=== PATIENT | male | born 1965 | race Caucasian/White ===

== ENCOUNTER 2020-02-28 12:50 | Outpatient (REF) | payer OTHER, SELFPAY | END 2020-02-28 12:51 | disposition home or self-care (01) | LOC: HO.LAB 12:50 | PROVIDERS: Visit Provider Internal Medicine | DX: Z20.828 Contact with and (suspected) exposure to other viral communicable diseases (principal) | CPT/HCPCS: 36415; C9803; U0003 ==

== ENCOUNTER 2020-03-14 13:57 | Outpatient (REF) | payer OTHER, SELFPAY ==
[2020-03-14 14:49] LABS: Hematocrit 44.1 % (42-52); Hemoglobin 15.1 g/dl (14.0-18.0); Mean Corpuscular HGB Conc 34.2 g/dl (31.0-36.0); Mean Corpuscular Hemoglobin 29.7 pg (27.0-33.0); Mean Corpuscular Volume 86.8 fL (80-98); Mean Platelet Volume 10.9 fL (9.4-12.4); Platelet Count 247 X10*3/uL (160-400); Red Blood Count 5.08 X10*6/uL (4.60-5.80); Red Cell Distribution Width 11.9 % (11.0-16.0); White Blood Count 6.6 X10*3/uL (4.8-10.8)
[2020-03-14 15:11] LABS: Alanine Aminotransferase 28 U/L (0-40); Albumin Level 4.3 g/dL (3.5-5.0); Alkaline Phosphatase 71 U/L (39-117); Anion Gap 12 (12-20); Aspartate Amino Transferase 23 U/L (5-37); Bilirubin Direct 0.3 mg/dL (0.0-0.5); Bilirubin Total 0.8 mg/dL (0.0-1.0); Blood Urea Nitrogen 9 mg/dL (9-16); Calcium 9.6 mg/dL (8.4-10.2); Carbon Dioxide 30 mmol/L (22-29); Chloride 100 mmol/L (96-108); Cholesterol 261 mg/dL; Estimated Glomerular Filt Rate > 60; Glucose Random 128 mg/dL (60-115); HDL Cholesterol 44 mg/dL; LDL Cholesterol Calculated 185 mg/dl; Potassium 4.9 mmol/l (3.3-5.1); Sodium 137 mmol/L (135-145); Triglycerides 163 mg/dL
[2020-03-15 11:31] LABS: Estimated Average Glucose 157 mg/dL; Hemoglobin A1c % 7.1 %
== END 2020-03-14 13:58 | disposition home or self-care (01) ==
LOC: HO.LAB 13:57
PROVIDERS: Visit Provider Internal Medicine
DX: R73.9 Hyperglycemia, unspecified (principal); I10 Essential (primary) hypertension
CPT/HCPCS: 36415; 80048; 80061; 80076; 83036; 85027

== ENCOUNTER → 2020-03-29 07:59 | Outpatient (REF) | payer OTHER, SELFPAY ==
--- NOTE | 2020-03-29 08:02 | CA_ITS ---
Acquisition Time: 2020-03-29 08:07:23 Total Exercise Time: 00:08:00 Test Indications: Chest Pain Medications: BETA MALGORZATA Protocol: MOSES Max HR: 153 BPM 91% of Pred: 167 BPM Max BP: 148/084 mmHG Max Work Load: 10.0 METS Exercise stress test with exercise 8 min of Moses protocol, without anginal symptoms, without arrythmia, with normotensive response to exercise, without EKG changes meeting criteria for ischemia. Test reviewed with Dr Galarza. Referred By: Fritz Wallace Overread By: VICENTE ANDRADE
== END ==
LOC: HO.CARD 07:59
PROVIDERS: Visit Provider Internal Medicine
DX: I10 Essential (primary) hypertension (principal)
CPT/HCPCS: 93017

== ENCOUNTER 2020-04-24 14:29 | Outpatient (REF) | payer OTHER, SELFPAY | END 2020-04-24 14:30 | disposition home or self-care (01) | LOC: HO.LAB 14:29 | PROVIDERS: Visit Provider Internal Medicine | DX: Z20.822 Contact with and (suspected) exposure to COVID-19 (principal) | CPT/HCPCS: 36415; C9803; U0003; U0005 ==

== ENCOUNTER 2020-07-11 15:15 | Outpatient (REF) | payer OTHER, SELFPAY ==
[2020-07-11 16:14] LABS: Cholesterol 289 mg/dL; HDL Cholesterol 42 mg/dL; LDL Cholesterol Calculated 172 mg/dl; Triglycerides 379 mg/dL
[2020-07-12 07:45] LABS: Estimated Average Glucose 189 mg/dL; Hemoglobin A1c % 8.2 %
== END 2020-07-11 15:16 | disposition home or self-care (01) ==
LOC: HO.LAB 15:15
PROVIDERS: PCP Internal Medicine; Visit Provider Internal Medicine
DX: I10 Essential (primary) hypertension (principal); R73.9 Hyperglycemia, unspecified
CPT/HCPCS: 36415; 80061; 83036

== ENCOUNTER 2020-08-17 09:50 | Emergency (ER) | payer OTHER, SELFPAY ==
--- NOTE | 2020-08-17 | ECG_ITS ---
Test Reason : FALL Blood Pressure : / mmHG Vent. Rate : 079 BPM Atrial Rate : 079 BPM P-R Int : 160 ms QRS Dur : 092 ms QT Int : 354 ms P-R-T Axes : 024 013 036 degrees QTc Int : 405 ms Normal sinus rhythm Normal ECG When compared with ECG of 17-MAR-2018 00:16, No significant change was found Referred By: Generic ED Physician Electronically Signed By:Avel Raphael
--- NOTE | ~2020-08-17 | XR_ITS ---
EXAMINATION: XR RIBS, LEFT CLINICAL INFORMATION: Trauma, pain COMPARISON: None TECHNIQUE: Frontal view chest and 3 views left ribs are obtained for a total of 4 views. FINDINGS: There is no visible left rib fracture. No visible acute bony abnormality. There are mild degenerative changes thoracic spine with bridging osteophytes. The lungs are clear and there is no pneumothorax or pneumomediastinum. No airspace consolidation or pleural reaction or effusion. The costophrenic sulci are well-defined. The heart is normal in size. The hilar and mediastinal contours are unremarkable. XR/XR ribs LT min 3V w CXR1V IMPRESSION: Unremarkable examination.
[2020-08-17 09:52] VITALS: BP 156/101; PULSE 81; RESP 18; TEMP 37; O2SAT 98; BMI 27.2
--- NOTE | 2020-08-17 10:31 | ED.FALL ---
HPI - Fall General Chief Complaint: Fall Stated Complaint: chest pain from a fall Time Seen by Provider: 08/17/20 10:17 Source: patient Mode of arrival: ambulatory Limitations: no limitations History of Present Illness HPI Narrative: 55 y/o male with history of HTN and DM who presents to the ER wtih left sided chest discomfort after he sustained a mechanical fall yesterday. He was walking holding a bag of corn on the cob when he tripped on his slippers and the corn jabbed into the anterior portion of his lower chest wall on the left. He had some pain initially but it went away and he was able to sleep well last night. He woke up today with increased pain with movement and palpation on the lower left chest. Pain is not constant and does not radiate. No SOB, diaphoresis, N/V. MD complaint: fall Onset (ago): day(s) (1) Fall from: standing Fall witnessed: yes, by family Place fall occurred: home Loss of consciousness: none Prolonged down time: no Symptoms prior to fall: none Context: tripped/slipped Location of injury: chest Severity: mild Severity scale (1-10): 3 Quality: aching Associated symptoms (after fall): denies Related Data Previous Rx's Medication Instructions Recorded metoprolol succinate 25 mg 12.5 mg PO DAILY #90 tab 03/14/20 tablet,extended release 24 hr atorvastatin 10 mg tablet 10 mg PO BEDTIME #90 tab 03/15/20 betamethasone, augmented 0.05 % 1 appl TOPICAL DAILY #50 g 07/11/20 topical ointment blood sugar diagnostic #100 ea 07/11/20 blood-glucose meter #1 ea 07/11/20 ketoconazole 2 % shampoo 1 appl TOPICAL 2XW #120 ml 07/11/20 lancets #100 ea 07/11/20 metformin 500 mg tablet 500 mg PO DAILY #90 tab 08/04/20 ibuprofen 600 mg PO Q8H PRN #10 tab 08/17/20 Allergies Allergy/AdvReac Type Severity Reaction Status Date / Time No Known Allergies Allergy Verified 08/17/20 09:52 [No Known Allergies*] Review of Systems Review of Systems: Constitutional: No Fever, No Chills ENT/Mouth: No sore throat, No Rhinorrhea, No Swallowing Difficulty Cardiovascular: + Chest Pain, No SOB, No Orthopnea, No Edema Respiratory: No Cough, No Sputum, No Wheezing, No dyspnea Gastrointestinal: No Nausea, No Vomiting, No Diarrhea, No abdominal Pain Musculoskeletal: No joint pain, + Myalgias Skin: No Skin Lesions, No rash Neuro: No Weakness, No Numbness, No Dizziness, No Headache Heme/Lymph: No Bruising PMFSH Past Medical History Attestation statement: The following information was validated with the patient. Medical History Diabetes mellitus Essential (primary) hypertension Seborrheic dermatitis of scalp Surgical History No history of previous surgery Family History Family History Mother Aortocoronary bypass status Father Stomach ulcer Social History Social History Housing: Apartment Alcohol intake: current Alcohol intake frequency: does not drink Patient Tobacco Use Status: Never used Tobacco Advance Directives: Yes Advance Directives Information Provided: Yes Advance Directives on File: No Current occupational status: employed Physical Exam Vital Signs: Vital Signs: Last Vital Signs Temp 98.6 F 08/17/20 09:52 Pulse 81 08/17/20 09:52 Resp 18 08/17/20 09:52 BP 156/101 H 08/17/20 09:52 Pulse Ox 98 08/17/20 09:52 Body Mass Index 27.2 Appearance: Alert. Oriented X3. No acute distress. Eyes: Pupils equal, round and reactive to light. EOMI ENT: Pharynx normal. Neck: Normal inspection. Neck supple. CVS: Normal heart rate and rhythm. Pulses normal. Respiratory: No respiratory distress. Breath sounds normal. Mild reproducible chest pain over left lower ribs anteriorly. Abdomen: Soft and nontender. +BS x4 Skin: Skin warm and dry. Normal skin color. Normal skin turgor. No rashes. Extremities: No lower extremity edema. Atraumatic. Neuro: Oriented X 3. No motor deficit. No sensory deficit. Ambulates with steady gait Course Course Course Narrative: 55 y/o male presenting with mild left lower chest wall pain s/p fall yesterday. Doubt cardiac etiology, doubt rib fracture given exam did not reveal significant tenderness. Will get EKG, CXR. Reevaluation(s) Reevaluation #1: EKG normal and CXR clear, no acute rib fracutre. Will treat for contusion with NSAIDs and supportive care. Patient is stable for discharge with outpatient follow up. MDM - Fall Medical Records Attestation: I reviewed the patient's medical records. ECG Data Attestation: I personally reviewed and interpreted this ECG as follows: ECG interpretation date: 08/17/20 ECG interpretation time: 10:40 Interpretation: normal sinus rhythm, HR 79 bpm, normal VT interval, normal QTc, no ST segment elevations or depressions. Discharge Plan Discharge Clinical Impression: Contusion of rib Qualifiers: Encounter type: initial encounter Laterality: left Qualified Code(s): S20.212A - Contusion of left front wall of thorax, initial encounter Patient Disposition: Home, Self-Care Instructions: Rib Contusion (ED) Additional Instructions: Your EKG was normal. Your chest x-ray was normal. Your pain is most likely due to bruising of your chest wall/ribs. Rest and use ice to the area as needed for pain. Take prescribed medication as needed for pain. Follow up with your doctor as needed. If you have any worsening chest pain or develop shortness of breath or difficulty breathing come back to the ER for further evaluation. Prescriptions: New ibuprofen 600 mg tablet 600 mg PO Q8H PRN (Reason: pain) Qty: 10 RF: 0 No Action atorvastatin 10 mg tablet 10 mg PO BEDTIME Qty: 90 RF: 1 metformin 500 mg tablet 500 mg PO DAILY Qty: 90 RF: 1 metoprolol succinate [Toprol XL] 25 mg tablet extended release 24 hr 12.5 mg PO DAILY Qty: 90 RF: 1 ketoconazole 2 % shampoo 1 appl topical 2XW Qty: 120 RF: 0 betamethasone, augmented [Diprolene (augmented)] 0.05 % ointment 1 appl topical DAILY Qty: 50 RF: 0 (DME) Accu-Chek Kassandra Plus test strp Strip See Rx Instructions .MEDSUPPLY Qty: 100 RF: 6 (DME) blood-glucose meter [Accu-Chek Kassandra Plus Meter] Misc See Rx Instructions miscellaneous .MEDSUPPLY Qty: 1 RF: 0 (DME) lancets [Accu-Chek Softclix Lancets] Misc See Rx Instructions .MEDSULY Qty: 100 RF: 3
== END 2020-08-17 11:26 | disposition home or self-care (01) ==
PROVIDERS: Emergency Provider Emergency Medicine; PCP Internal Medicine
DX: S20.212A Contusion of left front wall of thorax, initial encounter (principal); I10 Essential (primary) hypertension; E11.9 Type 2 diabetes mellitus without complications; Z79.84 Long term (current) use of oral hypoglycemic drugs; Z79.899 Other long term (current) drug therapy; W01.0XXA Fall on same level from slipping, tripping and stumbling without subsequent striking against object, initial encounter; Y93.9 Activity, unspecified; Y92.9 Unspecified place or not applicable; Y99.9 Unspecified external cause status
CPT/HCPCS: 71101; 93005; 99283

== ENCOUNTER 2021-05-01 07:33 | Outpatient (REF) | payer OTHER, SELFPAY ==
[2021-05-01 08:24] LABS: COVID-19 Test Negative (Negative); IDNOW Serial# 16C4AD1C
== END 2021-05-01 07:34 | disposition home or self-care (01) ==
LOC: HO.LAB 07:33
PROVIDERS: Visit Provider Internal Medicine
DX: Z20.822 Contact with and (suspected) exposure to COVID-19 (principal)
CPT/HCPCS: 87635; C9803

== ENCOUNTER 2023-01-16 19:46 | Emergency (ER) | payer OTHER, SELFPAY ==
--- NOTE | 2023-01-16 20:51 | ED.GENADULT ---
HPI - General Adult General Chief complaint: ETOH/Substance Use Stated complaint: etoh,delirium tremors Time Seen by Provider: 01/16/23 21:50 Source: patient and family (Son, Ramses who was a pharmacist) Mode of arrival: ambulatory Limitations: no limitations History of Present Illness HPI narrative: 57-year-old male who presents emergency department for evaluation of alcohol use disorder and possible alcohol withdrawal. According to his son, the patient has been drinking heavily since August 2022 after his father . Patient states he has been drinking 1/2-1 pt of vodka per day. He states that he had at least 4 nips of alcohol to drink prior to coming to the emergency department. The patient states that whenever he stops drinking he does get shakes and occasionally does have hallucinations. He has had nausea and vomiting mainly in the mornings. Patient has had a significant weight loss secondary to not eating. Patient's family was worried about him today and brought him to the emergency department for evaluation. Patient states he does want to stop drinking but he is not interested in a detox program at this time. He also states he is not interested in staying in the hospital to have a medical detox. Related Data Previous Rx's Medication Instructions Recorded atorvastatin 10 mg tablet 10 mg PO BEDTIME #90 tabs 03/15/20 blood sugar diagnostic (Accu-Chek #100 ea 07/11/20 Kassandra Plus test strips) blood-glucose meter (Accu-Chek #1 ea 07/11/20 Kassandra Plus Meter) ketoconazole 2 % shampoo 1 appl topical 2XW #120 mL 07/11/20 lancets (Accu-Chek Softclix #100 ea 07/11/20 Lancets) metformin 500 mg tablet 500 mg PO DAILY #90 tabs 08/04/20 ibuprofen 600 mg tablet 600 mg PO Q8H PRN pain #10 tabs 08/17/20 [id number]-hilloaznh-eimuncmsc 3.5 4 drp otic (ears) Q8H #10 mL 05/08/21 mg/mL-10,000 unit/mL-1 % ear solution chlordiazepoxide HCl 25 mg capsule 50 mg (2 x 25 mg) PO TID PRN 01/16/23 alcohol withdrawal 5 days #30 caps naltrexone 50 mg tablet 50 mg PO DAILY #30 tabs 01/16/23 chlordiazepoxide HCl 25 mg capsule 50 mg (2 x 25 mg) PO TID PRN 01/17/23 alcohol withdrawal 2 days #6 caps chlordiazepoxide HCl 25 mg capsule 50 mg (2 x 25 mg) PO TID PRN 01/17/23 alcohol withdrawal 3 days #9 caps Allergies Allergy/AdvReac Type Severity Reaction Status Date / Time No Known Allergies Allergy Verified 05/07/21 15:11 [No Known Allergies*] Review of Systems Review of Systems: Yes all other systems are reviewed and are negative [facility] Past Medical History [facility] Narrative: Past medical history: Diabetes mellitus, hypertension. Social history: He does smoke cigarettes. Patient drinks 1/2-1 pt of vodka per day. He denied drug use. Medical History Diabetes mellitus Essential (primary) hypertension Seborrheic dermatitis of scalp Surgical History No history of previous surgery Family History Family History Mother Aortocoronary bypass status Father Stomach ulcer Social History Housing: Apartment Alcohol intake: current Alcohol intake frequency: 3 or more drinks per day Alcohol type: hard liquor Patient Tobacco Use Status: Never used Tobacco Smoked in Last 30 Days: No Use of substances other than those prescribed or required for medical reasons: No Advance Directives: No Advance Directives Information Provided: No Current occupational status: employed Physical Exam ED Vital Signs: Vital Signs - 24 hr 01/16/23 20:53 01/16/23 22:50 01/16/23 23:54 Temperature 97.2 F 98.6 F 98.0 F Pulse Rate 107 H 113 H 93 Respiratory Rate 16 18 16 Blood Pressure 147/105 H 160/103 H 163/109 H Pulse Oximetry 97 96 98 Oxygen Delivery Method Room Air Room Air Room Air BMI result Body Mass Index 23.1 Vital signs revealed elevated heart rate of 107 elevated blood pressure of 147/105. Exam: General: Awake, alert in no distress Head: Normocephalic, atraumatic EENT: PERRL, Lids normal, sclera icteric, conjunctiva normal, nose normal , ears normal, throat without erythema or exudates Neck: Supple, no adenopathy, no trachea midline or C-spine tenderness Lung: breath sounds symmetric, no wheezing, rales or rhonchi Chest: symmetric movement, nontender Heart: regular rate and rhythm, normal S1, S2 no murmurs or rubs Abdomen: soft, non-tender, nondistended, normal bowel sounds Back: no vertebral tenderness, no CVAT Extremities: no deformities, moves all extremities symmetrically Neuro: Awake, alert, oriented, normal speech, moves all extremities symmetrically Psych: Pleasant, cooperative Course Course Course Narrative: This is a rapid medical exam: Additional HPI, ROS, PE not included below will be deferred to primary provider. Patient is a 57-year-old male with history of HTN, DM presenting to the emergency department stating that he drinks a pint of alcohol daily, today had 4 nips this morning. Family reports that patient has been drinking consistently for the past 4-5 months. Family reports rapid weight loss of approx 50 lbs over the past few months, is barley eating, frequently vomiting. Patient states that eating causes him to vomit so he has barely been eating. Patient denies any headache or chest pain. Family reports that patient develops tremors, especially in the morning when he stops drinking but deny withdrawal seizures. Plan: labs, UA, urine drug screen Reevaluation(s) Reevaluation #1: [facility] did not have librium in stock, sent over another rx to [facility], cancelled [facility] rx. 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 It appears that the previous provider sent over 30 tablets however instructed to take for only 5 days. I sent over a 3 day prescription, additional 2 day prescription sent. I advised patient to follow-up with primary care physician and to return if any new or worsening symptoms occur. They understand and agree with plan. Medications Administered Discontinued Medications Generic Name Dose Route Start Last Admin Trade Name Pardeep PRN Reason Stop Dose Admin Folic Acid 1 mg 01/16/23 22:39 01/16/23 22:50 Folic Acid 1 Mg Tablet PO 01/16/23 22:40 1 mg ONCE ONE Administration Sodium Chloride 1,000 mls @ 999 mls/hr 01/16/23 22:39 01/17/23 00:32 Ns IV 01/16/23 23:39 Infused .Q1H1M STA Infusion Thiamine HCl 100 mg 01/16/23 22:39 01/16/23 22:50 Thiamine Hcl 100 Mg Tablet PO 01/16/23 22:40 100 mg ONCE ONE Administration Medical Decision Making Medical Decision Making [facility] Narrative: 57-year-old male with history of hypertension and diabetes mellitus, does not taking medications who was brought to emergency department by his family for evaluation of alcohol use disorder. Patient is drinking 1/2-1 pt of vodka per day and does admit to drinking prior to coming to the emergency department. Patient's vital signs did reveal an elevated heart rate and elevated blood pressure. Patient's exam was otherwise unremarkable except for icteric sclera. Following evaluation was ordered: CBC, CMP, ethanol level, urinalysis, urine drug screen 22:46 Patient was ordered normal saline IV x1 L, for thiamine 100 mg orally and folate 1 mg orally. Patient's laboratory evaluation is consistent with his use disorder and malnutrition with leukopenia, thrombocytopenia and alcoholic hepatitis. Patient also has acute alcohol intoxication with an ethanol level of 323. The patient does not want to stay in the hospital to pursue in-patient detox. He is also not interested in pursuing detox an outpatient but he does want to stop drinking. Patient will be started on naltrexone 50 mg daily. He well also be started on Librium 50 mg 3 times a day as needed for alcohol withdrawal. I told him that he cannot take Librium if he is going to drink the this combination of drinking alcohol Librium can be dangerous. He will also day tgdv-ndy-zexfnte multivitamin high and by min and folate. Differential Diagnosis Differential Diagnoses: The differential diagnosis associated with the presentation includes Differential diagnosis includes was not limited to acute alcohol intoxication, alcohol withdrawal, polysubstance use, electrolyte abnormality, anemia Admission/Observation Consideration of admission/observation: Escalation of care including admission/observation considered Lab Data [facility] Lab Attestation statement: I reviewed the patient's lab results. My interpretation patient's laboratory evaluation is as follows: WBC low 2700 with a normal absolute neutrophil count of 700. Low platelet count 20250 elevated potassium 5.4. Elevated glucose 217. AST and ALT were elevated 231 and 109. Alkaline phosphatase was elevated 128 . Bilirubin elevated 1.6. Ethanol elevated 323. Labs are consistent with his alcohol use disorder with alcoholic hepatitis and acute intoxication. Patient is most likely malnourished secondary to his alcohol use and this explains as low white blood cell count low platelet count as well 01/16/23 21:42 01/16/23 21:42 Labs: Lab Results 01/16/23 Range/Units 21:42 WBC 2.7 L (4.8-10.8) X10*3/uL RBC 5.24 (4.60-5.80) X10*6/uL Hgb 16.8 (14.0-18.0) g/dl Hct 46.0 (42.0-52.0) % MCV 87.8 (80.0-98.0) fL MCH 32.1 (27.0-33.0) pg MCHC 36.5 H (31.0-36.0) g/dl RDW 13.0 (11.0-16.0) % Plt Count 82 L (160-400) X10*3/uL MPV 10.2 (9.4-12.4) fL Immature Gran % (Auto) 0.4 (0.0-0.4) % Neut % (Auto) 27.8 L (45-73) % Lymph % (Auto) 47.4 H (20-40) % [place] % (Auto) 21.8 H (2-11) % Eos % (Auto) 1.1 (0-4) % Baso % (Auto) 1.5 (0-2) % Lymph # (Auto) 1.3 (1.2-4.9) X10*3/uL [place] # (Auto) 0.6 (0.1-1.2) X10*3/uL Eos # (Auto) 0.0 (0.0-0.4) X10*3/uL Baso # (Auto) 0.0 (0.0-0.2) X10*3/uL Abs Immat Gran (auto) 0.01 (0.00-0.03) X10*3/uL Absolute Neuts (auto) 0.7 L (2.0-8.3) x10*3/uL Absolute Nucleated RBC 0.000 (0.0-0.012) X10*3/uL Nucleated RBC % (auto) 0.0 (0.0-0.2) /100WBC Smear Tech's Comments VERIFIED Sodium 138 (135-145) mmol/L Potassium 5.4 H (3.3-5.1) mmol/L Chloride 96 (96-108) mmol/L Carbon Dioxide 26 (22-29) mmol/L Anion Gap 21 H (12-20) BUN 9 (9-16) mg/dL Creatinine 0.95 (0.5-1.4) mg/dL Estim Creat Clear Calc 78.3 Estimated GFR > 60 Random Glucose 217 H (60-115) mg/dL Calcium 9.1 (8.4-10.2) mg/dL Magnesium 1.8 (1.6-2.6) mg/dL Total Bilirubin 1.6 H (0.0-1.0) mg/dL AST 231 H (5-37) U/L ALT 109 H (0-40) U/L Alkaline Phosphatase 128 H (39-117) U/L Total Protein 9.7 H (6.5-8.0) g/dL Albumin 4.5 (3.5-5.0) g/dL Ethyl Alcohol 323 H* mg/dL Discharge Plan Discharge Clinical Impression: Alcohol use disorder, Acute dehydration, Leukopenia, Thrombocytopenia, Acute alcoholic hepatitis Acute alcohol intoxication Qualifiers: Complication of substance-induced condition: uncomplicated Qualified Code(s): F10.920 - Alcohol use, unspecified with intoxication, uncomplicated Patient Disposition: Home, Self-Care Instructions: Alcoholic Hepatitis (ED) Additional Instructions: The legal limit of intoxication when we test blood is 80. Your alcohol level was extremely high at 323 which is for time above the legal limit. The following liver tests were all elevated: AST was 231 (normal is 5-37). ALT 109 (normal is 0-40). Alkaline phosphatase was 128 (normal is 39-117). Your bilirubin is elevated at 1.6 (was normal is 0-1.0) The following blood test were also low: White blood cell count low at 2700 (normal is 4800-25990) Platelet count 82,000 (normal 160,00 to 400,000) You are damaging your liver from drinking alcohol and your bone marrow by drinking alcohol and from malnutrition. If you continue to drink alcohol, you will developed cirrhosis of the liver, your liver will and you will from alcoholic cirrhosis. I am going to start you on the following medicines try to help you stop drinking. Naloxone 50 mg once a day, this hopefully will reduce your craving for alcohol. Librium 50 mg, 1 pill every 6 hours (is 3 times a day) as needed for withdrawal symptoms. Drinking alcohol and taking this medication can be dangerous you should only take this medicine if you stop drinking alcohol. You need to take a multivitamin that is high in thiamine and folate If you want to try to get into a detox program, call the numbers on the detox list. Follow-up with your doctor in 2 days. Please return to the emergency department if your symptoms get worse or if you develop any symptoms that are concerning to you. Prescriptions: New naltrexone 50 mg tablet 50 mg PO DAILY Qty: 30 0RF chlordiazepoxide HCl 25 mg capsule 50 mg PO TID PRN (Reason: alcohol withdrawal) 5 Days Qty: 30 0RF chlordiazepoxide HCl 25 mg capsule 50 mg PO TID PRN (Reason: alcohol withdrawal) 3 Days Qty: 9 0RF Rx Instructions: until symptoms controlled chlordiazepoxide HCl 25 mg capsule 50 mg PO TID PRN (Reason: alcohol withdrawal) 2 Days Qty: 6 0RF No Action atorvastatin 10 mg tablet 10 mg PO BEDTIME Qty: 90 1RF metformin 500 mg tablet 500 mg PO DAILY Qty: 90 1RF tgqoitmh-unpwotwmf-RT 3.5-10,000-1 mg/mL-unit/mL-% solution 4 drp otic (ears) Q8H Qty: 10 0RF ibuprofen 600 mg tablet 600 mg PO Q8H PRN (Reason: pain) Qty: 10 0RF ketoconazole 2 % shampoo 1 appl topical 2XW Qty: 120 0RF (DME) Accu-Chek Kassandra Plus test strp Strip See Rx Instructions .MEDSUPPLY Qty: 100 6RF Rx Instructions: twice a day (DME) blood-glucose meter [Accu-Chek Kassandra Plus Meter] Misc See Rx Instructions miscellaneous .MEDSUPPLY Qty: 1 0RF Rx Instructions: As directed to check blood glucose twice daily (DME) lancets [Accu-Chek Softclix Lancets] Misc See Rx Instructions .MEDSUPPLY Qty: 100 3RF Rx Instructions: twice a day Interventions: ED Discharge Assessment Last Done: 01/17/23 00:33 Discharge Date/Time: 01/17/23 00:33
[2023-01-16 20:53] VITALS: BP 147/105; PULSE 107; RESP 16; TEMP 36.2; O2SAT 97; BMI 23.1
--- NOTE | 2023-01-16 21:47 | PC.NURSE ---
Pt presents to ED seeking detox from alcohol. Pt son at bedside reports pt has hx of etoh dependence but recovered. Pt lost his dad over the summer and became depressed and started drinking again. Pt has lost 30 lbs in only a few months and has beenincreasingly confused. Son reported pt has been unable to tell the date and scored a CIWA of 15 at home. Pt does not present with tremors, denies sensitivity to light or sound, denies headache, endorses some nausea but no vomiting today. Pt has been stumbling at home but denies any falls. Placed a 20g IV in the left AC, bloodwork obtained and sent.
[2023-01-16 21:48] LABS: Eosinophils Percent Auto 1.1 % (0-4); PLT CLUMP 1; SCAN SMEAR FLAG 1
[2023-01-16 21:50] LABS: Basophils Percent Auto 1.5 % (0-2); Hemoglobin 16.8 g/dl (14.0-18.0); Imm Gran Abs Auto 0.01 X10*3/uL (0.00-0.03); Imm Gran Pct Auto 0.4 % (0.0-0.4); Lymphocytes Absolute Auto 1.3 X10*3/uL (1.2-4.9); Lymphocytes Percent Auto 47.4 % (20-40); MANUAL DIFF FLAG SCAN; Mean Corpuscular HGB Conc 36.5 g/dl (31.0-36.0); Mean Corpuscular Hemoglobin 32.1 pg (27.0-33.0); Mean Corpuscular Volume 87.8 fL (80.0-98.0); Mean Platelet Volume 10.2 fL (9.4-12.4); Monocytes Absolute Auto 0.6 X10*3/uL (0.1-1.2); Monocytes Percent Auto 21.8 % (2-11); Neutrophils Absolute Auto 0.7 x10*3/uL (2.0-8.3); Neutrophils Percent Auto 27.8 % (45-73); Red Blood Count 5.24 X10*6/uL (4.60-5.80)
[2023-01-16 21:51] LABS: Platelet Count 82 X10*3/uL (160-400); White Blood Count 2.7 X10*3/uL (4.8-10.8)
[2023-01-16 22:06] LABS: SLIDE REVIEW VERIFIED
[2023-01-16 22:15] LABS: Alanine Aminotransferase 109 U/L (0-40); Albumin Level 4.5 g/dL (3.5-5.0); Alkaline Phosphatase 128 U/L (39-117); Anion Gap 21 (12-20); Aspartate Amino Transferase 231 U/L (5-37); Bilirubin Total 1.6 mg/dL (0.0-1.0); Blood Urea Nitrogen 9 mg/dL (9-16); Calcium 9.1 mg/dL (8.4-10.2); Carbon Dioxide 26 mmol/L (22-29); Chloride 96 mmol/L (96-108); Creatinine Clr Calc Pharmacy 78.3; Estimated Glomerular Filt Rate > 60; Ethanol 323 mg/dL; Glucose Random 217 mg/dL (60-115); Magnesium 1.8 mg/dL (1.6-2.6); Potassium 5.4 mmol/L (3.3-5.1); Sodium 138 mmol/L (135-145); Total Protein 9.7 g/dL (6.5-8.0)
[2023-01-16] MEDS: 0.9 % Sodium Chloride 1,000 ML 999 ML IV (22:46)
[2023-01-16 22:50] VITALS: BP 160/103; PULSE 113; RESP 18; TEMP 37; O2SAT 96
[2023-01-16] MEDS: Thiamine HCL 100 MG TABLET PO (22:50)
[2023-01-16] MEDS: Folic Acid 1 MG TABLET PO (22:50)
[2023-01-16 23:54] VITALS: BP 163/109; PULSE 93; RESP 16; TEMP 36.7; O2SAT 98
== END 2023-01-17 00:33 | disposition home or self-care (01) ==
PROVIDERS: Registered Nurse Emergency; Emergency Provider Emergency Medicine Emergency Medical Services
DX: F10.920 Alcohol use, unspecified with intoxication, uncomplicated (principal); Y90.8 Blood alcohol level of 240 mg/100 ml or more; K70.10 Alcoholic hepatitis without ascites; E86.0 Dehydration; D72.819 Decreased white blood cell count, unspecified; E11.9 Type 2 diabetes mellitus without complications; I10 Essential (primary) hypertension; Z79.84 Long term (current) use of oral hypoglycemic drugs; Z79.899 Other long term (current) drug therapy
CPT/HCPCS: 36415; 80053; 80307; 83735; 85025; 96360; 96361; 99284; 99285

== ENCOUNTER 2023-01-19 22:17 | Emergency (ER) | payer MEDICAID, SELFPAY ==
--- NOTE | 2023-01-19 | ECG_ITS ---
Test Reason : DIZZNESS Blood Pressure : / mmHG Vent. Rate : 128 BPM Atrial Rate : 128 BPM P-R Int : 142 ms QRS Dur : 082 ms QT Int : 290 ms P-R-T Axes : 045 025 044 degrees QTc Int : 423 ms Sinus tachycardia Otherwise normal ECG When compared with ECG of 17-AUG-2020 10:32, Vent. rate has increased BY 49 BPM Referred By: Generic ED Physician Electronically Signed By:JONI DOE MD
[2023-01-19 22:18] VITALS: BP 145/103; PULSE 145; RESP 16; TEMP 36.4; O2SAT 99; BMI 24.0
--- NOTE | 2023-01-19 22:42 | ED.ALCOHOL ---
HPI - Alcohol General Chief Complaint: Weakness Stated Complaint: passed out today,weaknrss Time Seen by Provider: 01/19/23 22:41 Source: patient Mode of arrival: ambulatory Limitations: no limitations History of Present Illness HPI narrative: Patient alcoholic was seen here on 01/16 for alcohol withdrawal discharged on Librium comes as patient was feeling very shaky prior to arrival and almost fell while trying to sit on the toilet has poor control on his lower extremities no head injury Related Data Previous Rx's Medication Instructions Recorded atorvastatin 10 mg tablet 10 mg PO BEDTIME #90 tabs 03/15/20 blood sugar diagnostic (Accu-Chek #100 ea 07/11/20 Kassandra Plus test strips) blood-glucose meter (Accu-Chek #1 ea 07/11/20 Kassandra Plus Meter) ketoconazole 2 % shampoo 1 appl topical 2XW #120 mL 07/11/20 lancets (Accu-Chek Softclix #100 ea 07/11/20 Lancets) metformin 500 mg tablet 500 mg PO DAILY #90 tabs 08/04/20 ibuprofen 600 mg tablet 600 mg PO Q8H PRN pain #10 tabs 08/17/20 [id number]-nqnlfidon-puxmqthvy 3.5 4 drp otic (ears) Q8H #10 mL 05/08/21 mg/mL-10,000 unit/mL-1 % ear solution chlordiazepoxide HCl 25 mg capsule 50 mg (2 x 25 mg) PO TID PRN 01/16/23 alcohol withdrawal 5 days #30 caps naltrexone 50 mg tablet 50 mg PO DAILY #30 tabs 01/16/23 chlordiazepoxide HCl 25 mg capsule 50 mg (2 x 25 mg) PO TID PRN 01/17/23 alcohol withdrawal 2 days #6 caps chlordiazepoxide HCl 25 mg capsule 50 mg (2 x 25 mg) PO TID PRN 01/17/23 alcohol withdrawal 3 days #9 caps lorazepam 1 mg tablet (Ativan) 1 mg PO Q4-6H PRN alcohol 01/20/23 withdrawal #20 tabs magnesium oxide 400 mg (241.3 mg 400 mg PO DAILY #30 tabs 01/20/23 magnesium) tablet (MgO) Allergies Allergy/AdvReac Type Severity Reaction Status Date / Time No Known Allergies Allergy Verified 05/07/21 15:11 [No Known Allergies*] Review of Systems Review of Systems: Yes all other systems are reviewed and are negative [facility] Past Medical History Medical History Seborrheic dermatitis of scalp Diabetes mellitus Essential (primary) hypertension Surgical History No history of previous surgery Family History Family History Mother Aortocoronary bypass status Father Stomach ulcer Social History Housing: Apartment Alcohol intake: current Alcohol intake frequency: 3 or more drinks per day Alcohol type: hard liquor Patient Tobacco Use Status: Never used Tobacco Advance Directives: No Advance Directives Information Provided: Yes Current occupational status: employed Physical Exam ED Vital Signs: Vital Signs - 24 hr 01/19/23 22:18 01/19/23 23:56 Temperature 97.6 F 98.6 F Pulse Rate 145 H 104 H Respiratory Rate 16 Blood Pressure 145/103 H 141/97 H Pulse Oximetry 99 98 Oxygen Delivery Method Room Air Room Air BMI result Body Mass Index 24.0 Appearance: Alert. Oriented X3. Anxious and shaky Eyes: PERRLA, No Nystagmus ENT: Pharynx normal. Oral Mucosa moist Neck: Normal inspection. Neck supple. CVS: Sinus tachy Pulses normal. Respiratory: No respiratory distress. Equal air entry bilateral, no wheezing/rales/rhonchi Abdomen: Soft and nontender. Bowel sounds are present, no mass palpable, no CVA tenderness Skin: Skin warm and dry. Normal skin color. Normal skin turgor. Extremities: No lower extremity edema. No calf tenderness Neuro: Oriented X 3. No motor deficit. No sensory deficit.No cerebellar signs , cranial nerves II-XII intact Medical Decision Making Medical Decision Making MDM Narrative: Patient will alcohol withdrawal improved after IV fluids labs are stable has magnesium of 1.5 will give magnesium received 2 L of fluid Differential Diagnosis Differential Diagnoses: The differential diagnosis associated with the presentation includes Lab Data [facility] Lab Attestation statement: I reviewed the patient's lab results. 01/19/23 22:46 01/19/23 22:46 Labs: Lab Results 11/26/23 Range/Units 22:46 WBC 5.0 (4.8-10.8) X10*3/uL RBC 5.27 (4.60-5.80) X10*6/uL Hgb 17.4 (14.0-18.0) g/dl Hct 46.8 (42.0-52.0) % MCV 88.8 (80.0-98.0) fL MCH 33.0 (27.0-33.0) pg MCHC 37.2 H (31.0-36.0) g/dl RDW 12.8 (11.0-16.0) % Plt Count 100 L (160-400) X10*3/uL MPV 10.5 (9.4-12.4) fL Immature Gran % (Auto) 1.0 H (0.0-0.4) % Neut % (Auto) 58.8 (45-73) % Lymph % (Auto) 24.0 (20-40) % Glenn % (Auto) 12.8 H (2-11) % Eos % (Auto) 2.4 (0-4) % Baso % (Auto) 1.0 (0-2) % Lymph # (Auto) 1.2 (1.2-4.9) X10*3/uL Glenn # (Auto) 0.6 (0.1-1.2) X10*3/uL Eos # (Auto) 0.1 (0.0-0.4) X10*3/uL Baso # (Auto) 0.1 (0.0-0.2) X10*3/uL Abs Immat Gran (auto) 0.05 H (0.00-0.03) X10*3/uL Absolute Neuts (auto) 2.9 (2.0-8.3) x10*3/uL Absolute Nucleated RBC 0.000 (0.0-0.012) X10*3/uL Nucleated RBC % (auto) 0.0 (0.0-0.2) /100WBC PT 12.1 (11.1-13.3) SEC INR 1.0 (0.9-1.1) Sodium 137 (135-145) mmol/L Potassium 3.6 D (3.3-5.1) mmol/L Chloride 98 (96-108) mmol/L Carbon Dioxide 25 (22-29) mmol/L Anion Gap 18 (12-20) BUN 18 H (9-16) mg/dL Creatinine 1.07 (0.5-1.4) mg/dL Estim Creat Clear Calc 69.5 Estimated GFR > 60 Random Glucose 299 H (60-115) mg/dL Calcium 9.9 D (8.4-10.2) mg/dL Magnesium 1.5 L (1.6-2.6) mg/dL Total Bilirubin 3.1 H (0.0-1.0) mg/dL Direct Bilirubin 1.1 H (0.0-0.5) mg/dL AST 88 H (5-37) U/L ALT 74 H (0-40) U/L Alkaline Phosphatase 125 H (39-117) U/L Troponin I High Sens < 2.7 (<3.5-35.0) ng/L Total Protein 8.5 H (6.5-8.0) g/dL Albumin 4.1 (3.5-5.0) g/dL Lipase 57 (8-78) U/L Ethyl Alcohol < 10 mg/dL Medications Administered Discontinued Medications Generic Name Dose Route Start Last Admin Trade Name Freq PRN Reason Stop Dose Admin Sodium Chloride 1,000 mls @ 999 mls/hr 01/19/23 22:43 01/19/23 23:07 Ns IV 01/19/23 23:43 999 mls/hr .Q1H1M ONE Administration Sodium Chloride 1,000 mls @ 999 mls/hr 01/19/23 22:54 01/20/23 01:10 Ns IV 01/19/23 23:54 999 mls/hr .Q1H1M ONE Administration Magnesium Sulfate 2 gm in 50 mls @ 150 mls/hr 01/20/23 00:53 01/20/23 01:12 Magnesium Sulfate/H2o IV 01/20/23 01:12 150 mls/hr ONCE ONE Administration Lorazepam 2 mg 01/19/23 22:43 01/19/23 23:07 Lorazepam 2 Mg/Ml Vial IVPUSH 01/19/23 22:44 2 mg ONCE ONE Administration Potassium Chloride 20 meq 01/20/23 00:54 01/20/23 01:12 Potassium Chloride Er 20 Meq Tab.Er.Prt PO 01/20/23 00:55 20 meq ONCE ONE Administration Discharge Plan Discharge Clinical Impression: Alcohol withdrawal Patient Disposition: Home, Self-Care Instructions: Alcohol Withdrawal (ED) Additional Instructions: Drink plenty of fluids Take Ativan 1 tablet every 4-6 hours for alcohol withdrawal as prescribed Follow detox Take magnesium tablets daily for low magnesium Prescriptions: New lorazepam [Ativan] 1 mg tablet 1 mg PO Q4-6H PRN (Reason: alcohol withdrawal) Qty: 20 0RF magnesium oxide [MgO] 400 mg (241.3 mg magnesium) tablet 400 mg PO DAILY Qty: 30 0RF No Action atorvastatin 10 mg tablet 10 mg PO BEDTIME Qty: 90 1RF metformin 500 mg tablet 500 mg PO DAILY Qty: 90 1RF szleztyw-dboyxmjhz-XP 3.5-10,000-1 mg/mL-unit/mL-% solution 4 drp otic (ears) Q8H Qty: 10 0RF ibuprofen 600 mg tablet 600 mg PO Q8H PRN (Reason: pain) Qty: 10 0RF naltrexone 50 mg tablet 50 mg PO DAILY Qty: 30 0RF chlordiazepoxide HCl 25 mg capsule 50 mg PO TID PRN (Reason: alcohol withdrawal) 5 Days Qty: 30 0RF chlordiazepoxide HCl 25 mg capsule 50 mg PO TID PRN (Reason: alcohol withdrawal) 3 Days Qty: 9 0RF Rx Instructions: until symptoms controlled chlordiazepoxide HCl 25 mg capsule 50 mg PO TID PRN (Reason: alcohol withdrawal) 2 Days Qty: 6 0RF ketoconazole 2 % shampoo 1 appl topical 2XW Qty: 120 0RF (DME) Accu-Chek Kassandra Plus test strp Strip See Rx Instructions .MEDSUPPLY Qty: 100 6RF Rx Instructions: twice a day (DME) blood-glucose meter [Accu-Chek Kassandra Plus Meter] Misc See Rx Instructions miscellaneous .MEDSUPPLY Qty: 1 0RF Rx Instructions: As directed to check blood glucose twice daily (DME) lancets [Accu-Chek Softclix Lancets] Misc See Rx Instructions .MEDSUPPLY Qty: 100 3RF Rx Instructions: twice a day
[2023-01-19 22:51] LABS: MANUAL DIFF FLAG NO
[2023-01-19 22:56] LABS: Basophils Absolute Auto 0.1 X10*3/uL (0.0-0.2); Eosinophils Absolute Auto 0.1 X10*3/uL (0.0-0.4); Eosinophils Percent Auto 2.4 % (0-4); Hematocrit 46.8 % (42.0-52.0); Hemoglobin 17.4 g/dl (14.0-18.0); Imm Gran Abs Auto 0.05 X10*3/uL (0.00-0.03); Lymphocytes Absolute Auto 1.2 X10*3/uL (1.2-4.9); Mean Corpuscular HGB Conc 37.2 g/dl (31.0-36.0); Mean Corpuscular Volume 88.8 fL (80.0-98.0); Mean Platelet Volume 10.5 fL (9.4-12.4); Monocytes Absolute Auto 0.6 X10*3/uL (0.1-1.2); Monocytes Percent Auto 12.8 % (2-11); Neutrophils Absolute Auto 2.9 x10*3/uL (2.0-8.3); Neutrophils Percent Auto 58.8 % (45-73); Platelet Count 100 X10*3/uL (160-400); Red Blood Count 5.27 X10*6/uL (4.60-5.80); Red Cell Distribution Width 12.8 % (11.0-16.0)
[2023-01-19 23:05] LABS: Prothrombin Time 12.1 SEC (11.1-13.3)
[2023-01-19] MEDS: LORazepam 2 MG/ML VIAL IVPUSH (23:07)
[2023-01-19] MEDS: 0.9 % Sodium Chloride 1,000 ML 999 ML IV (23:07)
[2023-01-19 23:14] LABS: Troponin-I High Sensitivity < 2.7 ng/L (<3.5-35.0)
[2023-01-19 23:23] LABS: Alanine Aminotransferase 74 U/L (0-40); Albumin Level 4.1 g/dL (3.5-5.0); Alkaline Phosphatase 125 U/L (39-117); Anion Gap 18 (12-20); Aspartate Amino Transferase 88 U/L (5-37); Bilirubin Direct 1.1 mg/dL (0.0-0.5); Blood Urea Nitrogen 18 mg/dL (9-16); Calcium 9.9 mg/dL (8.4-10.2); Carbon Dioxide 25 mmol/L (22-29); Chloride 98 mmol/L (96-108); Creatinine Clr Calc Pharmacy 69.5; Estimated Glomerular Filt Rate > 60; Ethanol < 10 mg/dL; Glucose Random 299 mg/dL (60-115); Lipase 57 U/L (8-78); Magnesium 1.5 mg/dL (1.6-2.6); Potassium 3.6 mmol/L (3.3-5.1); Sodium 137 mmol/L (135-145); Total Protein 8.5 g/dL (6.5-8.0)
[2023-01-19 23:29] LABS: Bilirubin Total 3.1 mg/dL (0.0-1.0)
[2023-01-19 23:56] VITALS: BP 141/97; PULSE 104; TEMP 37; O2SAT 98
[2023-01-20] MEDS: 0.9 % Sodium Chloride 1,000 ML 999 ML IV (01:10)
[2023-01-20] MEDS: Magnesium Sulfate/H2O 2 GM/50 ML PIGGYBACK IV (01:12)
[2023-01-20] MEDS: Potassium Chloride ER 20 MEQ TAB.ER.PRT PO (01:12)
[2023-01-20 01:59] VITALS: BP 141/94; PULSE 95; RESP 16; TEMP 36.6; O2SAT 98
[2023-01-20] MEDS: LORazepam 1 MG TABLET 2 MG PO (02:00)
--- NOTE | 2023-01-20 02:12 | PC.NURSE ---
Pt alert and oriented. family at bedside. Pt placed on rn cardiac, sinus tachy. IV placed in right ac. Fluids running. received clarification from provider regarding magnesium order duration. MD Rosalina stated 20 minutes is acceptable for low mag. spoke with charge nurse, Evelyn as well. PT denies pain at this time. Plan of care ongoing. Call marley within reach.
== END 2023-01-20 02:20 | disposition home or self-care (01) ==
PROVIDERS: Emergency Provider Internal Medicine
DX: F10.239 Alcohol dependence with withdrawal, unspecified (principal); Y90.0 Blood alcohol level of less than 20 mg/100 ml; R53.1 Weakness; R42 Dizziness and giddiness; R00.0 Tachycardia, unspecified; Z79.899 Other long term (current) drug therapy
CPT/HCPCS: 36415; 80048; 80076; 80307; 83690; 83735; 84484; 85025; 85610; 93005; 96374; 96375; 99284; J2060; J3475

== ENCOUNTER 2024-07-04 22:59 | Emergency (ER) | payer BC, SELFPAY ==
[2024-07-04 23:03] VITALS: BP 158/101; PULSE 101; RESP 16; TEMP 36.2; O2SAT 97; BMI 24.4
--- NOTE | 2024-07-04 23:12 | ECG_ITS ---
Test Reason : CP Blood Pressure : */* mmHG Vent. Rate : 91 BPM Atrial Rate : 91 BPM P-R Int : 164 ms QRS Dur : 92 ms QT Int : 348 ms P-R-T Axes : 29 1 28 degrees QTcB Int : 428 ms Normal sinus rhythm Minimal voltage criteria for LVH, may be normal variant ( R in aVL ) Borderline ECG When compared with ECG of 19-Jan-2023 22:34, No significant change was found Referred By: Generic ED Physician Electronically Signed By: RENEE AUSTIN MD
[2024-07-04 23:52] LABS: MANUAL DIFF FLAG NO
[2024-07-04 23:53] LABS: Eosinophils Absolute Auto 0.1 X10*3/uL (0.0-0.4); Eosinophils Percent Auto 3.1 % (0-4); Hematocrit 44.3 % (42.0-52.0); Imm Gran Abs Auto 0.01 X10*3/uL (0.00-0.03); Imm Gran Pct Auto 0.2 % (0.0-0.4); Lymphocytes Percent Auto 48.3 % (20-40); Mean Corpuscular HGB Conc 36.1 g/dl (31.0-36.0); Mean Corpuscular Hemoglobin 31.3 pg (27.0-33.0); Mean Corpuscular Volume 86.7 fL (80.0-98.0); Mean Platelet Volume 10.1 fL (9.4-12.4); Monocytes Absolute Auto 0.5 X10*3/uL (0.1-1.2); Monocytes Percent Auto 12.4 % (2-11); Neutrophils Absolute Auto 1.5 x10*3/uL (2.0-8.3); Platelet Count 109 X10*3/uL (160-400); Red Blood Count 5.11 X10*6/uL (4.60-5.80); Red Cell Distribution Width 13.9 % (11.0-16.0); White Blood Count 4.2 X10*3/uL (4.8-10.8)
[2024-07-05 00:05] LABS: Amphetamine Screen Urine Not Detected (Not Detect); Barbiturates, Urine Not Detected (Not Detect); Benzodiazepines Screen Urine Not Detected (Not Detect); Buprenorphine Scr Not Detected (Not Detect); Cannabinoid Screen Urine Not Detected (Not Detect); Cocaine Screen Urine Not Detected (Not Detect); Fentanyl, urine Not Detected (Not Detect); Methadone Screen, Urine Not Detected (Not Detect); Opiate Screen Urine Not Detected (Not Detect); Oxycodone Screen Urine Not Detected (Not Detect); Phencyclidine Screen Urine Not Detected (Not Detect)
[2024-07-05 00:10] LABS: Alanine Aminotransferase 142 U/L (0-40); Albumin Level 4.8 g/dL (3.5-5.0); Alkaline Phosphatase 115 U/L (39-117); Anion Gap 17 (12-20); Aspartate Amino Transferase 195 U/L (5-37); Bilirubin Total 1.4 mg/dL (0.0-1.0); Blood Urea Nitrogen 7 mg/dL (9-16); Calcium 9.3 mg/dL (8.4-10.2); Carbon Dioxide 28 mmol/L (22-29); Chloride 96 mmol/L (96-108); Creatinine Clr Calc Pharmacy 89.6; Estimated Glomerular Filt Rate > 60; Ethanol 368 mg/dL; Glucose Random 220 mg/dL (60-115); Potassium 3.8 mmol/L (3.3-5.1); Sodium 137 mmol/L (135-145); Total Protein 8.9 g/dL (6.5-8.0)
--- NOTE | 2024-07-05 00:15 | ED.ALCOHOL ---
HPI - Alcohol General Chief Complaint: ETOH/Substance Use Stated Complaint: chest pain Time Seen by Provider: 07/04/24 23:55 Source: patient and family (Son) Mode of arrival: ambulatory Limitations: no limitations History of Present Illness ED Provider: Dr. Arley Mcneil HPI narrative: 59-year-old male with a history of diabetes mellitus, hypertension, alcohol use disorder who presents emergency department for evaluation for alcohol detox. The patient states that he has been binge drinking for 2 months. The patient drinks anywhere from 12-16 cans of [place] with 12% alcohol. The patient states that when he stops drinking he gets very tremulous and shaky and needs to start drinking again. He also states when he stops drinking he feels like his heart races. The patient has not had any auditory or visual hallucinations. He denies alcohol withdrawal seizures. Patient states that he has had no appetite and eats very little food. He states that when he stops drinking he does have pain in his mid epigastric and right upper quadrant area. The patient states that his father and this trigger him to start drinking. The patient states that the last time that he stopped drinking, he came to this emergency department and was given prescriptions for medications that helped him. In reviewing his record, the patient was seen on 01/16/2023 and was treated with naltrexone and Librium tapering course. Related Data Previous Rx's ?Medication ?Instructions ?Recorded atorvastatin 10 mg tablet 10 mg PO BEDTIME #90 tabs 03/15/20 blood sugar diagnostic (Accu-Chek #100 ea 07/11/20 Kassandra Plus test strips) blood-glucose meter (Accu-Chek #1 ea 07/11/20 Kassandra Plus Meter) ketoconazole 2 % shampoo 1 appl topical 2XW #120 mL 07/11/20 lancets (Accu-Chek Softclix #100 ea 07/11/20 Lancets) metformin 500 mg tablet 500 mg PO DAILY #90 tabs 08/04/20 ibuprofen 600 mg tablet 600 mg PO Q8H PRN pain #10 tabs 08/17/20 [id number]-qemcfwsqv-jfphsbaej 3.5 4 drp otic (ears) Q8H #10 mL 05/08/21 mg/mL-10,000 unit/mL-1 % ear solution chlordiazepoxide HCl 25 mg capsule 50 mg (2 x 25 mg) PO TID PRN 01/16/23 alcohol withdrawal 5 days #30 caps naltrexone 50 mg tablet 50 mg PO DAILY #30 tabs 01/16/23 chlordiazepoxide HCl 25 mg capsule 50 mg (2 x 25 mg) PO TID PRN 01/17/23 alcohol withdrawal 2 days #6 caps chlordiazepoxide HCl 25 mg capsule 50 mg (2 x 25 mg) PO TID PRN 01/17/23 alcohol withdrawal 3 days #9 caps lorazepam 1 mg tablet (Ativan) 1 mg PO Q4-6H PRN alcohol 01/20/23 withdrawal #20 tabs magnesium oxide 400 mg (241.3 mg 400 mg PO DAILY #30 tabs 01/20/23 magnesium) tablet (MgO) chlordiazepoxide HCl 25 mg capsule See Rx Instructions .Route 07/05/24 .COMPLEX #20 caps naltrexone 50 mg tablet 50 mg PO DAILY #30 tabs 07/05/24 Allergies Allergy/AdvReac Type Severity Reaction Status Date / Time No Known Allergies Allergy Verified 07/04/24 23:07 [No Known Allergies*] Review of Systems Review of Systems: Yes all other systems are reviewed and are negative [facility] Past Medical History [facility] Narrative: Social history: 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 He denies tobacco use. Patient denies drug use. Patient does drink 12-14 cans of [place] with 12% alcohol per day. Medical History Seborrheic dermatitis of scalp Diabetes mellitus Essential (primary) hypertension Surgical History No history of previous surgery Family History Family History Mother Aortocoronary bypass status Father Stomach ulcer Social History Social History Housing: Apartment Alcohol intake: current Alcohol intake frequency: 3 or more drinks per day Alcohol type: hard liquor Patient Tobacco Use Status: Never used Tobacco Smoked in Last 30 Days: Yes Use of substances other than those prescribed or required for medical reasons: No Advance Directives: No Advance Directives Information Provided: Yes Do you have a plan to hurt others: No Plan Current occupational status: employed Physical Exam ED Vital Signs: Vital Signs - 24 hr 07/04/24 23:03 07/05/24 02:20 07/05/24 02:22 Temperature 97.1 F 97.1 F 97.1 F Pulse Rate 101 H 90 90 Respiratory Rate 16 16 16 Blood Pressure 158/101 H 168/107 H 168/107 H Pulse Oximetry 97 96 96 Oxygen Delivery Method Room Air Room Air Room Air BMI result Body Mass Index 24.4 Vital signs revealed an elevated heart rate of 101 and an elevated blood pressure of 150 8/101 Exam: General: Awake, alert in no distress, strong odor of alcohol in his breath Head: Normocephalic, atraumatic EENT: PERRL, Lids normal, sclera normal, conjunctiva normal, nose normal , ears normal, throat without erythema or exudates Neck: Supple, no adenopathy Lung: breath sounds symmetric, no wheezing, rales or rhonchi Chest: symmetric movement, nontender Heart: regular rate and rhythm, normal S1, S2 no murmurs or rubs Abdomen: soft, non-tender, nondistended, normal bowel sounds Back: no vertebral tenderness, no CVAT Extremities: no deformities, moves all extremities symmetrically Neuro: Awake, alert, oriented, normal speech, cranial nerves intact, moves all extremities symmetrically Psych: Pleasant, cooperative Medical Decision Making Medical Decision Making MDM Narrative: 59-year-old male with a history of diabetes mellitus, hypertension, alcohol use disorder who presents emergency department for evaluation for alcohol detox. The patient states that he has been binge drinking for 2 months. The patient drinks anywhere from 12-16 cans of [place] with 12% alcohol. The patient states that when he stops drinking he gets very tremulous and shaky and needs to start drinking again. He also states when he stops drinking he feels like his heart races. The patient has not had any auditory or visual hallucinations. He denies alcohol withdrawal seizures. Patient states that he has had no appetite and eats very little food. He states that when he stops drinking he does have pain in his mid epigastric and right upper quadrant area. Vital signs revealed an elevated heart rate and elevated blood pressure otherwise was unremarkable. Differential diagnosis: ?Includes but is not limited to acute alcohol intoxication, electrolyte abnormalities, anemia Course: 00:41 My interpretation patient's laboratory evaluation is as follows: WBC low 4200. Low platelet count a 109,000. AST and ALT elevated 195 and 142. Total bilirubin elevated 1.4. Glucose elevated 220. Ethanol level elevated 368. At this time the patient is acutely intoxicated in his not exhibiting any withdrawal symptoms. The patient was treated with normal saline IV x1 L, thiamine 100 mg orally and folic acid 1 mg orally. The patient will be discharged home with the following medications: Librium taper: Day 1: 50 mg q.6 hours; day 2: 50 mg Q 8 hours; day 3: 50 mg q.12 hours, day 4: 50 mg at night Naltrexone 50 mg q.day x1 month to reduce alcohol craving Patient was also advised to take a multivitamin that has high and thiamine and folate daily. He was discharged home in the care of his family Admission/Observation Consideration of admission/observation: Escalation of care including admission/observation considered (Yes) Lab Data MDM Lab Attestation statement: I reviewed the patient's lab results. 07/04/24 23:31 07/04/24 23:31 Labs: Lab Results 07/04/24 Range/Units 23:31 WBC 4.2 L (4.8-10.8) X10*3/uL RBC 5.11 (4.60-5.80) X10*6/uL Hgb 16.0 (14.0-18.0) g/dl Hct 44.3 (42.0-52.0) % MCV 86.7 (80.0-98.0) fL MCH 31.3 (27.0-33.0) pg MCHC 36.1 H (31.0-36.0) g/dl RDW 13.9 (11.0-16.0) % Plt Count 109 L (160-400) X10*3/uL MPV 10.1 (9.4-12.4) fL Immature Gran % (Auto) 0.2 (0.0-0.4) % Neut % (Auto) 35.0 L (45-73) % Lymph % (Auto) 48.3 H (20-40) % Yell % (Auto) 12.4 H (2-11) % Eos % (Auto) 3.1 (0-4) % Baso % (Auto) 1.0 (0-2) % Lymph # (Auto) 2.0 (1.2-4.9) X10*3/uL Yell # (Auto) 0.5 (0.1-1.2) X10*3/uL Eos # (Auto) 0.1 (0.0-0.4) X10*3/uL Baso # (Auto) 0.0 (0.0-0.2) X10*3/uL Abs Immat Gran (auto) 0.01 (0.00-0.03) X10*3/uL Absolute Neuts (auto) 1.5 L (2.0-8.3) x10*3/uL Absolute Nucleated RBC 0.000 (0.0-0.012) X10*3/uL Nucleated RBC % (auto) 0.0 (0.0-0.2) /100WBC Sodium 137 (135-145) mmol/L Potassium 3.8 (3.3-5.1) mmol/L Chloride 96 (96-108) mmol/L Carbon Dioxide 28 (22-29) mmol/L Anion Gap 17 (12-20) BUN 7 L (9-16) mg/dL Creatinine 0.84 (0.5-1.4) mg/dL Estim Creat Clear Calc 89.6 Estimated GFR > 60 Random Glucose 220 H (60-115) mg/dL Calcium 9.3 D (8.4-10.2) mg/dL Total Bilirubin 1.4 H (0.0-1.0) mg/dL AST 195 H (5-37) U/L ALT 142 H (0-40) U/L Alkaline Phosphatase 115 (39-117) U/L Total Protein 8.9 H (6.5-8.0) g/dL Albumin 4.8 (3.5-5.0) g/dL Urine Opiates Screen Not Detected (Not Detect) Ur Buprenorphine Scrn Not Detected (Not Detect) ng/mL Ur Oxycodone Screen Not Detected (Not Detect) ng/mL Urine Methadone Screen Not Detected (Not Detect) ng/mL Urine Fentanyl Screen Not Detected (Not Detect) Ur Barbiturates Screen Not Detected (Not Detect) Ur Phencyclidine Scrn Not Detected (Not Detect) Ur Amphetamines Screen Not Detected (Not Detect) U Benzodiazepines Scrn Not Detected (Not Detect) Urine Cocaine Screen Not Detected (Not Detect) U Marijuana (THC) Screen Not Detected (Not Detect) Ethyl Alcohol 368 H* mg/dL Independent Historian Clinical information obtained from an independent historian. History obtained from or confirmed by: Other (Son) External Record Review External record reviewed: Other ( previous emergency department visits were reviewed by me) Prescription Management I considered prescription management with: Other (Alcohol withdrawal medications: Librium and naltrexone) Chronic Conditions Patient?s care impacted by: Diabetes and Hypertension Social Determinants Patient?s care significantly limited by Social Determinants of Health including: Other Social Determinant of Health ( alcohol use disorder) Medications Administered Discontinued Medications Generic Name Dose Route Start Last Admin Trade Name Freq PRN Reason Stop Dose Admin Folic Acid 1 mg 07/05/24 00:25 07/05/24 00:52 Folic Acid 1 Mg Tablet PO 07/05/24 00:26 1 mg ONCE ONE Administration Sodium Chloride 1,000 mls @ 999 mls/hr 07/05/24 00:25 07/05/24 01:36 Ns IV 07/05/24 01:25 Infused .Q1H1M STA Infusion Thiamine HCl 100 mg 07/05/24 00:25 07/05/24 00:52 Thiamine Hcl 100 Mg Tablet PO 07/05/24 00:26 100 mg ONCE ONE Administration Discharge Plan Discharge Clinical Impression: Acute alcohol intoxication, Transaminitis, Thrombocytopenia Patient Disposition: Home, Self-Care Instructions: Alcohol Use Disorder (ED) Additional Instructions: You had several abnormalities on your blood work including a low platelet count, elevated liver enzymes (AST and ALT). These abnormalities are caused by drinking too much alcohol and this is a sign that you are starting to hurt your body and your health secondary to your drinking. I am going to start you on a tapering course of Librium to help you stop drinking. Librium 25 mg pills Day 1: 2 pills four times a day Day 2: 2 pill three times a day Day 3: 2pills two times a day Day 4: 2 pill at night I am also starting you on a medicine called naltrexone. This medication will help reduce your cravings for alcohol. Take naltrexone 50 mg q.day x1 month Take Pepcid (famotidine) 20 mg pills, 1 pill daily for 1 month. This is a medication that will reduce the acid in your stomach. You also need to take a multivitamin that has high and thiamine and folate daily for 3 months Alcohol use disorder You were seen in the Emergency Department today for treatment of alcohol use disorder.? You may have been given medications to help with your withdrawal symptoms.? Please do not drink alcohol with them. This is very dangerous and can cause respiratory depression or other adverse reactions depending on the medication. If you would like more help with your alcohol use disorder, please consider calling our outpatient Addiction Treatment office:? [facility] (M-F [id number]) [address] [place] [address] [address] ? You have also been given a list of treatment providers in the area that can assist as well.? If you experience seizures, vomiting blood, black stools, falls, severe headache, chest pain, fevers, trouble breathing, hallucinations or any other concerns you need to call 911 or seek immediate care. Please stay hydrated. Prescriptions: New chlordiazepoxide HCl 25 mg capsule See Rx Instructions .ROUTE .COMPLEX Qty: 20 0RF Rx Instructions: Day 1: 2 pills q.i.d. Day 2: 2 pills t.i.d. Day 3: 2 pills b.i.d. Day 4: 2 pills at night naltrexone 50 mg tablet 50 mg PO DAILY Qty: 30 0RF No Action atorvastatin 10 mg tablet 10 mg PO BEDTIME Qty: 90 1RF metformin 500 mg tablet 500 mg PO DAILY Qty: 90 1RF [id number]-ghgwmreed-AU 3.5-10,000-1 mg/mL-unit/mL-% solution 4 drp otic (ears) Q8H Qty: 10 0RF ibuprofen 600 mg tablet 600 mg PO Q8H PRN (Reason: pain) Qty: 10 0RF naltrexone 50 mg tablet 50 mg PO DAILY Qty: 30 0RF chlordiazepoxide HCl 25 mg capsule 50 mg PO TID PRN (Reason: alcohol withdrawal) 5 Days Qty: 30 0RF chlordiazepoxide HCl 25 mg capsule 50 mg PO TID PRN (Reason: alcohol withdrawal) 3 Days Qty: 9 0RF Rx Instructions: until symptoms controlled chlordiazepoxide HCl 25 mg capsule 50 mg PO TID PRN (Reason: alcohol withdrawal) 2 Days Qty: 6 0RF lorazepam [Ativan] 1 mg tablet 1 mg PO Q4-6H PRN (Reason: alcohol withdrawal) Qty: 20 0RF magnesium oxide [MgO] 400 mg (241.3 mg magnesium) tablet 400 mg PO DAILY Qty: 30 0RF ketoconazole 2 % shampoo 1 appl topical 2XW Qty: 120 0RF (DME) Accu-Chek Kassandra Plus test strp Strip See Rx Instructions .MEDSUPPLY Qty: 100 6RF Rx Instructions: twice a day (DME) blood-glucose meter [Accu-Chek Kassandra Plus Meter] Misc See Rx Instructions miscellaneous .MEDSUPPLY Qty: 1 0RF Rx Instructions: As directed to check blood glucose twice daily (DME) lancets [Accu-Chek Softclix Lancets] Misc See Rx Instructions .MEDSUPPLY Qty: 100 3RF Rx Instructions: twice a day Stand Alone Forms: Work/School Release Interventions: ED Discharge Assessment Last Done: 07/05/24 02:22 Discharge Date/Time: 07/05/24 02:23 Print Language: Azeri
[2024-07-05] MEDS: 0.9 % Sodium Chloride 1,000 ML 999 ML IV (00:45)
[2024-07-05] MEDS: Folic Acid 1 MG TABLET PO (00:52)
[2024-07-05] MEDS: Thiamine HCL 100 MG TABLET PO (00:52)
--- NOTE | 2024-07-05 01:08 | MHC.EDTECH ---
assumed care of this pt
[2024-07-05 02:20] VITALS: BP 168/107; PULSE 90; RESP 16; TEMP 36.2; O2SAT 96
[2024-07-05 02:22] VITALS: BP 168/107; PULSE 90; RESP 16; TEMP 36.2; O2SAT 96
== END 2024-07-05 02:23 | disposition home or self-care (01) ==
PROVIDERS: Emergency Provider Emergency Medicine Emergency Medical Services; PCP Family Medicine
DX: F10.129 Alcohol abuse with intoxication, unspecified (principal); Y90.8 Blood alcohol level of 240 mg/100 ml or more; R74.01 Elevation of levels of liver transaminase levels; D69.6 Thrombocytopenia, unspecified; R07.89 Other chest pain; R10.11 Right upper quadrant pain; R11.0 Nausea; Z51.81 Encounter for therapeutic drug level monitoring; Z79.899 Other long term (current) drug therapy
CPT/HCPCS: 36415; 80053; 80307; 85025; 93005; 96360; 99284; 99285

== ENCOUNTER → 2024-07-04 23:12 | Outpatient (BNV) | payer BC, SELFPAY | PROVIDERS: Emergency Provider Emergency Medicine Emergency Medical Services; PCP Family Medicine; Visit Provider Internal Medicine Cardiovascular Disease | DX: R07.9 Chest pain, unspecified (principal) | CPT/HCPCS: 93010 ==

== ENCOUNTER 2024-07-11 20:28 | Emergency (ER) | payer BC, SELFPAY ==
[2024-07-11 20:57] VITALS: BP 161/100; PULSE 90; RESP 16; TEMP 36.6; O2SAT 98; BMI 24.8
--- NOTE | 2024-07-11 21:08 | ECG_ITS ---
Test Reason : WEAKNESS Blood Pressure : */* mmHG Vent. Rate : 86 BPM Atrial Rate : 86 BPM P-R Int : 156 ms QRS Dur : 86 ms QT Int : 348 ms P-R-T Axes : 26 -7 19 degrees QTcB Int : 416 ms Normal sinus rhythm Minimal voltage criteria for LVH, may be normal variant ( R in aVL ) Cannot rule out Anterior infarct , age undetermined Abnormal ECG When compared with ECG of 04-Jul-2024 23:18, No significant change was found Referred By: Generic ED Physician Electronically Signed By: Avel Raphael
[2024-07-11 21:25] LABS: Basophils Percent Auto 0.9 % (0-2); Eosinophils Absolute Auto 0.2 X10*3/uL (0.0-0.4); Eosinophils Percent Auto 4.4 % (0-4); Hematocrit 42.8 % (42.0-52.0); Hemoglobin 15.5 g/dl (14.0-18.0); Imm Gran Abs Auto 0.02 X10*3/uL (0.00-0.03); Imm Gran Pct Auto 0.5 % (0.0-0.4); Lymphocytes Absolute Auto 1.5 X10*3/uL (1.2-4.9); Lymphocytes Percent Auto 33.3 % (20-40); MANUAL DIFF FLAG NO; Mean Corpuscular HGB Conc 36.2 g/dl (31.0-36.0); Mean Corpuscular Hemoglobin 32.2 pg (27.0-33.0); Mean Platelet Volume 10.3 fL (9.4-12.4); Monocytes Absolute Auto 0.7 X10*3/uL (0.1-1.2); Monocytes Percent Auto 15.1 % (2-11); Neutrophils Percent Auto 45.8 % (45-73); Platelet Count 144 X10*3/uL (160-400); Red Blood Count 4.81 X10*6/uL (4.60-5.80); Red Cell Distribution Width 13.9 % (11.0-16.0); White Blood Count 4.4 X10*3/uL (4.8-10.8)
[2024-07-11 21:38] LABS: Anion Gap 15 (12-20); Blood Urea Nitrogen 14 mg/dL (9-16); Carbon Dioxide 26 mmol/L (22-29); Chloride 104 mmol/L (96-108); Creatinine Clr Calc Pharmacy 59.5; Estimated Glomerular Filt Rate > 60; Glucose Random 341 mg/dL (60-115); Potassium 4.6 mmol/L (3.3-5.1); Sodium 140 mmol/L (135-145)
[2024-07-11 21:41] LABS: Ethanol < 10 mg/dL
[2024-07-11 21:49] LABS: Troponin-I High Sensitivity < 2.7 ng/L (<3.5-35.0)
[2024-07-12 00:29] VITALS: BP 178/106; PULSE 94; RESP 16; TEMP 36.9; O2SAT 100
[2024-07-12 00:56] LABS: Appearance Urine Clear; Color Urine Yellow; Glucose Urine UA >=1000 mg/dL (Negative); Leukocyte Esterase Urine Negative (Negative); Nitrite Urine Negative (Negative); Specific Gravity - Urine >= 1.030 (1.005-1.025); UMIC TRIGGER UACC YES; Urine Blood Negative (Negative); Urine Ketones Trace mg/dL (Negative); Urine Protein Negative (Neg-Trace)
[2024-07-12 01:01] LABS: Bacteria Urine None Seen (None Seen); Hyaline Casts Urine 0-2 /LPF (0-2); RBC Urine 0-2 /HPF (0-2); Squamous Epithelial Cell Urine 0-2 /HPF (0-2); WBC Urine 0-5 /HPF (0-5)
[2024-07-12 02:41] VITALS: BP 176/108; PULSE 97; RESP 14; TEMP 36.6; O2SAT 100
--- NOTE | 2024-07-12 02:55 | PC.NURSE ---
Pt is a pleasant 59 y/o male who presents for evaluation of weakness, dyspnea on exertion and heaviness in lower extremities. Pt is awake, alert, and oriented, and no acute distress observed. Family is at the bedside.
--- NOTE | 2024-07-12 04:20 | ED.WEAKNESS ---
HPI - Weakness General Chief complaint: Weakness Stated complaint: vertigo feeling weak Time Seen by Provider: 07/12/24 04:05 Source: patient and family Mode of arrival: ambulatory Limitations: no limitations History of Present Illness ED Provider: Dr. Mireya Cummings HPI Narrative: Patient comes to the emergency room complaining of feeling weak, feeling that both of his legs are heavy, decreased appetite. Patient states that about a week ago he was started on chlordiazepoxide about a week ago to help him stop drinking. Patient states that it has been 1 week since he had any alcohol. Patient states that he has been feeling that both of his legs are weak. Patient denies any chest pain, states he has occasional shortness of breath. Related Data Previous Rx's ?Medication ?Instructions ?Recorded atorvastatin 10 mg tablet 10 mg PO BEDTIME #90 tabs 03/15/20 blood sugar diagnostic (Accu-Chek #100 ea 07/11/20 Kassandra Plus test strips) blood-glucose meter (Accu-Chek #1 ea 07/11/20 Kassandra Plus Meter) ketoconazole 2 % shampoo 1 appl topical 2XW #120 mL 07/11/20 lancets (Accu-Chek Softclix #100 ea 07/11/20 Lancets) metformin 500 mg tablet 500 mg PO DAILY #90 tabs 08/04/20 ibuprofen 600 mg tablet 600 mg PO Q8H PRN pain #10 tabs 08/17/20 [id number] 3.5 4 drp otic (ears) Q8H #10 mL 05/08/21 mg/mL-10,000 unit/mL-1 % ear solution chlordiazepoxide HCl 25 mg capsule 50 mg (2 x 25 mg) PO TID PRN 01/16/23 alcohol withdrawal 5 days #30 caps naltrexone 50 mg tablet 50 mg PO DAILY #30 tabs 01/16/23 chlordiazepoxide HCl 25 mg capsule 50 mg (2 x 25 mg) PO TID PRN 01/17/23 alcohol withdrawal 2 days #6 caps chlordiazepoxide HCl 25 mg capsule 50 mg (2 x 25 mg) PO TID PRN 01/17/23 alcohol withdrawal 3 days #9 caps lorazepam 1 mg tablet (Ativan) 1 mg PO Q4-6H PRN alcohol 01/20/23 withdrawal #20 tabs magnesium oxide 400 mg (241.3 mg 400 mg PO DAILY #30 tabs 01/20/23 magnesium) tablet (MgO) chlordiazepoxide HCl 25 mg capsule See Rx Instructions .Route 07/05/24 .COMPLEX #20 caps naltrexone 50 mg tablet 50 mg PO DAILY #30 tabs 07/05/24 Allergies Allergy/AdvReac Type Severity Reaction Status Date / Time No Known Allergies Allergy Verified 07/11/24 21:07 [No Known Allergies*] Review of Systems Review of Systems: Constitutional : No Weight loss, No Fever, No Chills, No Night Sweats, complaining of fatigue, weakness ENT/Mouth : No Hearing loss, No Ear Pain, No Nasal Congestion, No Sinus Pain, No Hoarseness, No sore throat, No Rhinorrhea, No Swallowing Difficulty Eyes: No Eye Pain, No Swelling, No Redness, No Foreign Body, No Discharge, No Vision Changes Cardiovascular : No Chest Pain, No SOB, No Dyspnea on Exertion, No Orthopnea, No Edema, No Palpitations Respiratory : No Cough, No Sputum, No Wheezing, No Smoke Exposure, No Dyspnea Gastrointestinal : No Nausea, No Vomiting, No Diarrhea, No Constipation, No abdominal Pain, No Hematochezia, No Melena Genitourinary : no irregular bleeding, No Dysuria, No Urinary Frequency, No Hematuria, No Urinary Incontinence, No Urgency, No Flank Pain, No Urinary Flow Changes, No Hesitancy Musculoskeletal : No joint pain, No Myalgias, No Joint Swelling Skin : No Skin Lesions, No rash Neuro : No Weakness, No Numbness, No Paresthesias, No Loss of Consciousness, No Dizziness, No Headache Psych : No Anxiety/Panic, No Depression, No SI/HI/AH/VH, No Social Issues, Heme/Lymph: No Bruising, No Bleeding,No Lymphadenopathy Endocrine : No Polyuria, No Polydipsia, No Temperature Intolerance [facility] Past Medical History Medical History Seborrheic dermatitis of scalp Diabetes mellitus Essential (primary) hypertension Surgical History No history of previous surgery Family History Family History Mother Aortocoronary bypass status Father Stomach ulcer Social History Social History Housing: Apartment Alcohol intake: current Alcohol intake frequency: 3 or more drinks per day Alcohol type: hard liquor Patient Tobacco Use Status: Never used Tobacco Advance Directives: No Advance Directives Information Provided: Yes Do you have a plan to hurt others: No Plan Current occupational status: employed Physical Exam Vital Signs: Vital Signs: Last Vital Signs Temp 97.9 F 07/12/24 02:41 Pulse 97 07/12/24 02:41 Resp 14 07/12/24 02:41 BP 176/108 H 07/12/24 02:41 Pulse Ox 100 07/12/24 02:41 O2 Del Method Room Air 07/12/24 02:41 BMI result Body Mass Index 24.8 Const: Other: Appearance: Alert. Oriented X3. No acute distress. Well-appearing Eyes: Pupils equal, round and reactive to light. ENT: Pharynx normal. Neck: Normal inspection. Neck supple. No lymph nodes noted. No crepitus CVS: Normal heart rate and rhythm. Pulses normal. Normal S1 and S2 Respiratory: No respiratory distress. Breath sounds normal. No Wheezing. No rales Abdomen: Soft and nontender. No rigidity. No distention. Skin: Skin warm and dry. Normal skin color. Normal skin turgor. Extremities: No lower extremity edema. No Lacerations. No Rash Neuro: Oriented X 3. No motor deficit. No sensory deficit. Moving all extremities. No slurred speech. CN 2 through 12 grossly intact, patient has normal steady gait Psych: calm, cooperative, normal affect Medical Decision Making Medical Decision Making MDM Narrative: My interpretation of labs: No significant abnormality in patient's hematology or chemistry, glucose 341. Patient known to be diabetic. Urinalysis negative, ETOH level negative., normal CPK, normal magnesium, negative serology for COVID RSV and influenza One of the side effects of Librium is muscle weakness, this is likely the patient's reason for weakness, it coincides with the patient's onset of taking this medication Differential Diagnosis Differential Diagnoses: The differential diagnosis associated with the presentation includes (Medication side-effect, hypomagnesemia, viral illness) Admission/Observation Consideration of admission/observation: Escalation of care including admission/observation considered Lab Data [facility] Lab Attestation statement: I reviewed the patient's lab results. 07/11/24 21:19 07/11/24 21:19 Labs: Lab Results 07/11/24 07/12/24 07/12/24 Range/Units 21:19 00:49 04:21 WBC 4.4 L (4.8-10.8) X10*3/uL RBC 4.81 (4.60-5.80) X10*6/uL Hgb 15.5 (14.0-18.0) g/dl Hct 42.8 (42.0-52.0) % MCV 89.0 (80.0-98.0) fL MCH 32.2 (27.0-33.0) pg MCHC 36.2 H (31.0-36.0) g/dl RDW 13.9 (11.0-16.0) % Plt Count 144 L D (160-400) X10*3/uL MPV 10.3 (9.4-12.4) fL Immature Gran % (Auto) 0.5 H (0.0-0.4) % Neut % (Auto) 45.8 (45-73) % Lymph % (Auto) 33.3 (20-40) % Gem % (Auto) 15.1 H (2-11) % Eos % (Auto) 4.4 H (0-4) % Baso % (Auto) 0.9 (0-2) % Lymph # (Auto) 1.5 (1.2-4.9) X10*3/uL Gem # (Auto) 0.7 (0.1-1.2) X10*3/uL Eos # (Auto) 0.2 (0.0-0.4) X10*3/uL Baso # (Auto) 0.0 (0.0-0.2) X10*3/uL Abs Immat Gran (auto) 0.02 (0.00-0.03) X10*3/uL Absolute Neuts (auto) 2.0 (2.0-8.3) x10*3/uL Absolute Nucleated RBC 0.000 (0.0-0.012) X10*3/uL Nucleated RBC % (auto) 0.0 (0.0-0.2) /100WBC Sodium 140 (135-145) mmol/L Potassium 4.6 D (3.3-5.1) mmol/L Chloride 104 (96-108) mmol/L Carbon Dioxide 26 (22-29) mmol/L Anion Gap 15 (12-20) BUN 14 (9-16) mg/dL Creatinine 1.22 (0.5-1.4) mg/dL Estim Creat Clear Calc 59.5 Estimated GFR > 60 Random Glucose 341 H (60-115) mg/dL Calcium 10.0 D (8.4-10.2) mg/dL Magnesium 2.2 (1.6-2.6) mg/dL Total Bilirubin 0.8 (0.0-1.0) mg/dL Direct Bilirubin 0.3 (0.0-0.5) mg/dL AST 94 H (5-37) U/L ALT 133 H (0-40) U/L Alkaline Phosphatase 89 (39-117) U/L Total Creatine Kinase 85 (38-174) U/L Troponin I High Sens < 2.7 (<3.5-35.0) ng/L Total Protein 8.0 (6.5-8.0) g/dL Albumin 4.4 (3.5-5.0) g/dL Urine Color Yellow Urine Appearance Clear Urine pH 7.0 (5.0-9.0) Ur Specific [place] >= 1.030 H (1.005-1.025) Urine Protein Negative (Neg-Trace) mg/dL Urine Glucose (UA) >=1000 H (Negative) mg/dL Urine Ketones Trace (Negative) mg/dL Urine Blood Negative (Negative) Urine Nitrite Negative (Negative) Ur Leukocyte Esterase Negative (Negative) Urine RBC 0-2 (0-2) /HPF Urine WBC 0-5 (0-5) /HPF Ur Squamous Epith Cells 0-2 (0-2) /HPF Urine Bacteria None Seen (None Seen) Hyaline Casts 0-2 (0-2) /LPF Ethyl Alcohol < 10 mg/dL Influenza Type A (PCR) NEGATIVE (Negative) Influenza Type B (PCR) NEGATIVE (Negative) RSV RNA Qual (PCR) NEGATIVE (Negative) SARS-CoV-2 RNA (RT-PCR) NEGATIVE (Negative) Discharge Plan Discharge Clinical Impression: Muscle weakness, Medication side effect Patient Disposition: Home, Self-Care Instructions: Weakness (ED) Additional Instructions: Please follow-up with your primary care physician tomorrow. If you have any worsening or new symptoms, please return to the emergency room or call 911 Prescriptions: No Action atorvastatin 10 mg tablet 10 mg PO BEDTIME Qty: 90 1RF metformin 500 mg tablet 500 mg PO DAILY Qty: 90 1RF [id number]-CL 3.5-10,000-1 mg/mL-unit/mL-% solution 4 drp otic (ears) Q8H Qty: 10 0RF ibuprofen 600 mg tablet 600 mg PO Q8H PRN (Reason: pain) Qty: 10 0RF naltrexone 50 mg tablet 50 mg PO DAILY Qty: 30 0RF chlordiazepoxide HCl 25 mg capsule 50 mg PO TID PRN (Reason: alcohol withdrawal) 5 Days Qty: 30 0RF chlordiazepoxide HCl 25 mg capsule 50 mg PO TID PRN (Reason: alcohol withdrawal) 3 Days Qty: 9 0RF Rx Instructions: until symptoms controlled chlordiazepoxide HCl 25 mg capsule 50 mg PO TID PRN (Reason: alcohol withdrawal) 2 Days Qty: 6 0RF chlordiazepoxide HCl 25 mg capsule See Rx Instructions .ROUTE .COMPLEX Qty: 20 0RF Rx Instructions: Day 1: 2 pills q.i.d. Day 2: 2 pills t.i.d. Day 3: 2 pills b.i.d. Day 4: 2 pills at night naltrexone 50 mg tablet 50 mg PO DAILY Qty: 30 0RF lorazepam [Ativan] 1 mg tablet 1 mg PO Q4-6H PRN (Reason: alcohol withdrawal) Qty: 20 0RF magnesium oxide [MgO] 400 mg (241.3 mg magnesium) tablet 400 mg PO DAILY Qty: 30 0RF ketoconazole 2 % shampoo 1 appl topical 2XW Qty: 120 0RF (DME) Accu-Chek Kassandra Plus test strp Strip See Rx Instructions .MEDSUPPLY Qty: 100 6RF Rx Instructions: twice a day (DME) blood-glucose meter [Accu-Chek Kassandra Plus Meter] Misc See Rx Instructions miscellaneous .MEDSUPPLY Qty: 1 0RF Rx Instructions: As directed to check blood glucose twice daily (DME) lancets [Accu-Chek Softclix Lancets] Misc See Rx Instructions .MEDSUPPLY Qty: 100 3RF Rx Instructions: twice a day Stand Alone Forms: Work/School Release Print Language: Eritre[place]
[2024-07-12 04:36] LABS: Alanine Aminotransferase 133 U/L (0-40); Albumin Level 4.4 g/dL (3.5-5.0); Aspartate Amino Transferase 94 U/L (5-37); Bilirubin Direct 0.3 mg/dL (0.0-0.5); Bilirubin Total 0.8 mg/dL (0.0-1.0); Magnesium 2.2 mg/dL (1.6-2.6)
[2024-07-12 04:37] LABS: Alkaline Phosphatase 89 U/L (39-117)
[2024-07-12 05:04] LABS: Influenza A PCR NEGATIVE (Negative); Influenza B PCR NEGATIVE (Negative); Resp Syncy Virus RNA Qual PCR NEGATIVE (Negative); SARS COV2 PCR INHOUSE NEGATIVE (Negative)
[2024-07-12 05:54] VITALS: BP 176/108; PULSE 97; RESP 14; TEMP 36.6; O2SAT 100
== END 2024-07-12 06:00 | disposition home or self-care (01) ==
PROVIDERS: Emergency Provider Emergency Medicine; PCP Family Medicine
DX: R53.1 Weakness (principal); R94.31 Abnormal electrocardiogram [ECG] [EKG]; Z79.899 Other long term (current) drug therapy; Z03.818 Encounter for observation for suspected exposure to other biological agents ruled out; Z51.81 Encounter for therapeutic drug level monitoring
CPT/HCPCS: 0241U; 36415; 80048; 80076; 80307; 81001; 82550; 83735; 84484; 85025; 93005; 99283; 99284

== ENCOUNTER → 2024-07-11 21:08 | Outpatient (BNV) | payer BC, SELFPAY | PROVIDERS: Emergency Provider Emergency Medicine; PCP Family Medicine; Visit Provider Internal Medicine Cardiovascular Disease | DX: R94.31 Abnormal electrocardiogram [ECG] [EKG] (principal); R53.1 Weakness | CPT/HCPCS: 93010 ==